=== PATIENT | male | born 1985 | race Caucasian/White ===

== ENCOUNTER 2017-05-30 17:21 | Inpatient (IN) | payer MEDICAID ==
[~2017-05-30] VITALS: Ht 177.8 cm; Wt 65.0 kg
[~2017-05-30 17:21] MED LIST: AMOX1TAB12 PO; APIX5TAB PO; EFAV1TAB PO; SULF1TAB24 PO
[2017-05-30] MEDS ORDERED: SODIUM CHLORIDE FLUSH 10ML SYR IVF ONE ×2 (18:00→21:00)
[2017-05-30] MEDS ORDERED: SODIUM CHLORIDE 0.9% 1,000ML IVBOLUS ONE (18:00)
[2017-05-30] MEDS ORDERED: MORPHINE SULFATE 4 MG/ML, 1ML IVPush PRN (18:00)
[2017-05-30] MEDS ORDERED: ONDANSETRON 2MG/ML, 2ML IVPush ONE (18:00)
[2017-05-30 18:36] LABS: BLOOD UREA NITROGEN 15 mg/dL (7-18)
[2017-05-30 18:47] LABS: ASPARTATE AMINO TRANSFERASE 14 U/L (15-37); HEMATOCRIT 40.4 % (39.2-51.8); HEMOGLOBIN 13.9 g/dL (13.7-18.0); WHITE BLOOD COUNT 11.2 x10^3/uL (3.4-10)
[2017-05-30] MEDS ORDERED: morphine SULFATE 10 MG/ML, 1ML ONE (22:03)
[2017-05-30] MEDS ORDERED: ONDANSETRON 2MG/ML, 2ML ONE (22:04)
[2017-05-30] MEDS ORDERED: OMNIPAQUE 350 MG/ML, 100ML BOTTLE ONE (22:22)
[2017-05-30] MEDS ORDERED: AMPICILLIN/SULBACTAM 3 GM in SODIUM CHLORIDE 0.9% 100 ML IV ONE (22:30)
[2017-05-31] MEDS ORDERED: CLINDAMYCIN 150 MG/ML, 6ML ONE (00:18)
[2017-05-31] MEDS ORDERED: FENTANYL PF 250 MCG/5ML ONE (00:35)
[2017-05-31] MEDS ORDERED: CLINDAMYCIN 150 MG/ML, 6ML IVPB ONE (00:59)
[2017-05-31] MEDS ORDERED: OXYcodone 5 MG/5 ML ORAL.SOL UDC PO PRN (01:00)
[2017-05-31] MEDS ORDERED: LABETALOL 5MG/ML, 20ML IV PRN (01:00)
[2017-05-31] MEDS ORDERED: hydrALAzine 20 MG/ML, 1ML IV PRN (01:00)
[2017-05-31] MEDS ORDERED: ONDANSETRON 2MG/ML, 2ML IVPush PRN ×2 (01:00→01:30)
[2017-05-31] MEDS ORDERED: ACETAMINOPHEN 650 MG/20.3 ML UDC ONE (01:26)
[2017-05-31] MEDS ORDERED: FENTANYL PF 100 MCG/2ML ONE (01:26)
[2017-05-31] MEDS ORDERED: OXYcodone 5 MG/5 ML ORAL.SOL UDC ONE (01:27)
[2017-05-31] MEDS: FENTANYL PF 100 MCG/2ML IV PRN ×2 (01:28→01:37)
[2017-05-31] MEDS ORDERED: ACETAMINOPHEN 325 MG TABLET PO PRN (01:30)
[2017-05-31] MEDS ORDERED: LACTATED RINGERS 1,000 ML IV SCH (01:30)
[2017-05-31] MEDS ORDERED: VANCOMYCIN PER PHARMACY MC PRN (01:30)
[2017-05-31] MEDS ORDERED: HYDROmorphone 1 MG/ML, 1ML ONE (01:44)
[2017-05-31] MEDS: HYDROmorphone 1 MG/ML, 1ML IV PRN ×2 (01:46→01:51)
[2017-05-31 02:30] VITALS: BP 116/77
[2017-05-31] MEDS ORDERED: PHARMACOKINETIC MONITORING MC PRN (02:30)
[2017-05-31] MEDS ORDERED: PHARMACOKINETIC CONSULTATION MC ONE (02:30)
[2017-05-31] MEDS: AMPICILLIN/SULBACTAM 3 GM in SODIUM CHLORIDE 0.9% 100 ML IV SCH ×4 (02:56→21:01)
[2017-05-31] MEDS: OXYcodone/APAP 10/325MG TABLET PO PRN ×2 (03:19→15:36)
[2017-05-31 04:17] LABS: HEMATOCRIT 35.6 % (39.2-51.8); HEMOGLOBIN 12.1 g/dL (13.7-18.0); WHITE BLOOD COUNT 11.4 x10^3/uL (3.4-10)
[2017-05-31] MEDS: VANCOMYCIN 1,300 MG in SODIUM CHLORIDE 0.9% 250 ML IV SCH ×2 (04:46→16:48)
[2017-05-31 09:11] VITALS: BP 111/68
[2017-05-31] MEDS: LACTULOSE 10 GM/15 ML UDC PO SCH ×2 (09:16→21:01)
[2017-05-31] MEDS: EFAVIRENZ/EMTRICITAB/TENOFOVIR 600MG-200MG-300MG TABLET PO SCH (09:16)
[2017-05-31] MEDS: SULFAMETH./TRIMETHOPRIM DS 800MG/160MG TABLET PO SCH ×2 (09:16→21:00)
[2017-05-31] MEDS: LACTATED RINGERS 1,000 ML IV SCH ×2 (12:06→12:10)
[2017-05-31 12:18] LABS: DAU SCREEN DISCLAIMER
[2017-05-31] MEDS ORDERED: PROPOFOL 10 MG/ML, 20ML ONE (12:37)
[2017-05-31] MEDS ORDERED: ONDANSETRON 2MG/ML, 2ML ONE (12:37)
[2017-05-31] MEDS ORDERED: DEXAMETHASONE 4 MG/ML, 1ML ONE (12:37)
[2017-05-31 14:22] VITALS: BP 109/75
[2017-05-31] MEDS ORDERED: morphine SULFATE 10 MG/ML, 1ML ONE (16:54)
[2017-05-31] MEDS: MORPHINE SULFATE 4 MG/ML, 1ML IV PRN (16:57)
[2017-05-31 20:23] VITALS: BP 109/82
[2017-05-31] MEDS: OXYcodone IR 5MG TABLET PO PRN (21:59)
[2017-06-01] MEDS ORDERED: morphine SULFATE 10 MG/ML, 1ML ONE (00:49)
[2017-06-01] MEDS: MORPHINE SULFATE 4 MG/ML, 1ML IV PRN (01:02)
[2017-06-01] MEDS: LACTATED RINGERS 1,000 ML IV SCH ×2 (01:07→14:30)
[2017-06-01] MEDS: HYDROmorphone 2 MG/ML, 1ML IVPush PRN ×6 (02:04→22:20)
[2017-06-01 02:09] VITALS: BP 109/64
[2017-06-01] MEDS: AMPICILLIN/SULBACTAM 3 GM in SODIUM CHLORIDE 0.9% 100 ML IV SCH ×4 (02:23→22:06)
[2017-06-01] MEDS: VANCOMYCIN 1,300 MG in SODIUM CHLORIDE 0.9% 250 ML IV SCH ×2 (05:07→16:49)
[2017-06-01 07:18] VITALS: BP 108/71
[2017-06-01] MEDS: LACTULOSE 10 GM/15 ML UDC PO SCH ×2 (08:48→22:05)
[2017-06-01] MEDS: SULFAMETH./TRIMETHOPRIM DS 800MG/160MG TABLET PO SCH ×2 (08:48→22:05)
[2017-06-01] MEDS: OXYcodone IR 5MG TABLET PO PRN (08:48)
[2017-06-01] MEDS: EFAVIRENZ/EMTRICITAB/TENOFOVIR 600MG-200MG-300MG TABLET PO SCH (08:48)
[2017-06-01 14:11] VITALS: BP 109/67
[2017-06-01 19:10] VITALS: BP 117/69
[2017-06-01 23:06] LABS: ABSOLUTE CD 4 HELPER 97 /uL (359-1519); HEMOGLOBIN 11.9 g/dL (12.6-17.7); IMMATURE GRANULOCYTES 0 % (Not Estab.); MCH 29.1 pg (26.6-33.0); MCHC 33.1 g/dL (31.5-35.7); MCV 88 fL (79-97); MONOCYTES 3 % (Not Estab.); NEUTROPHILS 87 % (Not Estab.); NEUTROPHILS (ABSOLUTE) 9.5 x10E3/uL (1.4-7.0); PLATELETS 217 x10E3/uL (150-379); RBC 4.09 x10E6/uL (4.14-5.80); RDW 14.9 % (12.3-15.4); WBC 10.9 x10E3/uL (3.4-10.8)
[2017-06-02] MEDS: HYDROmorphone 2 MG/ML, 1ML IVPush PRN ×6 (01:07→20:30)
[2017-06-02] MEDS: LACTATED RINGERS 1,000 ML IV SCH ×2 (01:08→13:57)
[2017-06-02 01:10] VITALS: BP 120/81
[2017-06-02] MEDS: AMPICILLIN/SULBACTAM 3 GM in SODIUM CHLORIDE 0.9% 100 ML IV SCH ×2 (02:49→09:37)
[2017-06-02] MEDS: VANCOMYCIN 1,300 MG in SODIUM CHLORIDE 0.9% 250 ML IV SCH (04:57)
[2017-06-02 07:16] VITALS: BP 117/75
[2017-06-02] MEDS: LACTULOSE 10 GM/15 ML UDC PO SCH ×2 (09:37→20:34)
[2017-06-02] MEDS: SULFAMETH./TRIMETHOPRIM DS 800MG/160MG TABLET PO SCH ×2 (09:37→20:34)
[2017-06-02] MEDS: EFAVIRENZ/EMTRICITAB/TENOFOVIR 600MG-200MG-300MG TABLET PO SCH (09:37)
[2017-06-02 14:19] VITALS: BP 119/70
[2017-06-02] MEDS: CEFAZOLIN PMX 2GM/50ML 50 ML IVPB SCH (16:45)
[2017-06-02 19:07] VITALS: BP 108/61
[2017-06-02] MEDS: ENOXAPARIN 60 MG/0.6 ML SQ SCH (20:36)
[2017-06-03] MEDS: LACTATED RINGERS 1,000 ML IV SCH ×3 (00:19→16:31)
[2017-06-03] MEDS: CEFAZOLIN PMX 2GM/50ML 50 ML IVPB SCH ×3 (00:19→16:31)
[2017-06-03] MEDS: HYDROmorphone 2 MG/ML, 1ML IVPush PRN ×2 (00:19→03:48)
[2017-06-03 00:35] VITALS: BP 113/65
[2017-06-03 06:49] VITALS: BP 111/72
[2017-06-03] MEDS: ENOXAPARIN 60 MG/0.6 ML SQ SCH ×2 (08:35→21:08)
[2017-06-03] MEDS: EFAVIRENZ/EMTRICITAB/TENOFOVIR 600MG-200MG-300MG TABLET PO SCH (08:38)
[2017-06-03] MEDS: HYDROmorphone 2MG TABLET PO PRN ×5 (08:38→23:34)
[2017-06-03] MEDS: SULFAMETH./TRIMETHOPRIM DS 800MG/160MG TABLET PO SCH ×2 (08:39→21:08)
[2017-06-03] MEDS: LACTULOSE 10 GM/15 ML UDC PO SCH ×2 (08:40→21:08)
[2017-06-03 12:16] VITALS: BP 120/75
[2017-06-03 20:10] VITALS: BP 107/63
[2017-06-04] MEDS: CEFAZOLIN PMX 2GM/50ML 50 ML IVPB SCH ×2 (00:16→09:40)
[2017-06-04] MEDS: LACTATED RINGERS 1,000 ML IV SCH ×2 (00:54→11:35)
[2017-06-04 02:08] VITALS: BP 119/77
[2017-06-04] MEDS: HYDROmorphone 2MG TABLET PO PRN ×3 (02:56→12:47)
[2017-06-04 05:07] LABS: HEMATOCRIT 39.9 % (39.2-51.8); HEMOGLOBIN 13.4 g/dL (13.7-18.0); WHITE BLOOD COUNT 8.1 x10^3/uL (3.4-10)
[2017-06-04 05:11] LABS: BLOOD UREA NITROGEN 18 mg/dL (7-18)
[2017-06-04 05:32] LABS: ASPARTATE AMINO TRANSFERASE 11 U/L (15-37)
[2017-06-04 07:04] VITALS: BP 103/66
[2017-06-04] MEDS: LACTULOSE 10 GM/15 ML UDC PO SCH (08:05)
[2017-06-04] MEDS: SULFAMETH./TRIMETHOPRIM DS 800MG/160MG TABLET PO SCH (08:05)
[2017-06-04] MEDS: EFAVIRENZ/EMTRICITAB/TENOFOVIR 600MG-200MG-300MG TABLET PO SCH (08:05)
[2017-06-04] MEDS: ENOXAPARIN 60 MG/0.6 ML SQ SCH (08:08)
[2017-06-04] MEDS ORDERED: TRAM50TA2 PO (11:35)
[2017-06-04] MEDS ORDERED: AMOXICILLIN/CLAV 500-125MG TABLET PO SCH (12:00)
[2017-06-04] MEDS ORDERED: APIXABAN 5 MG TABLET PO SCH (12:00)
[2017-06-04 13:24] VITALS: BP 122/80
== END 2017-06-04 13:30 | disposition left against medical advice (07) | DRG 579 ==
LOC: ED 23:20 → EDIP 23:25 → OR 23:58 → 4NOR 05-31 02:07
PROVIDERS: ADMIT Hospitalist; ATTEND Hospitalist
PROC: 0K920ZZ Drainage of Right Neck Muscle, Open Approach (ICD-10-PCS; principal; 2017-05-31 00:30)
DX: L02.11 Cutaneous abscess of neck (principal); B20 Human immunodeficiency virus [HIV] disease; B19.20 Unspecified viral hepatitis C without hepatic coma; Z53.21 Procedure and treatment not carried out due to patient leaving prior to being seen by health care provider; W10.9XXA Fall (on) (from) unspecified stairs and steps, initial encounter; F17.200 Nicotine dependence, unspecified, uncomplicated; S01.01XA Laceration without foreign body of scalp, initial encounter; Z82.0 Family history of epilepsy and other diseases of the nervous system; Z86.718 Personal history of other venous thrombosis and embolism; Y93.89 Activity, other specified; Y92.89 Other specified places as the place of occurrence of the external cause; Y99.8 Other external cause status
CPT/HCPCS: 36415; 70491; 80053; 80202; 80307; 83605; 84145; 85025; 86361; 87015; 87040; 87070; 87075; 87077; 87102; 87116; 87205; 87206; 93306; 93970; 96365; 96375; J0295; J0690; J1100; J1170; J1650; J2405; J2704; J3010; J3370; Q9967; G0479; J7030; J7050; J7120

== ENCOUNTER 2017-06-23 21:36 | Emergency (ER) | payer MEDICAID ==
[~2017-06-23] VITALS: Ht 177.8 cm; Wt 70.0 kg
[~2017-06-23 21:36] MED LIST changes: +TRAM50TA2 PO
[2017-06-23 21:45] VITALS: BP 114/75
[2017-06-23] MEDS ORDERED: CLINDAMYCIN 300 MG CAPSULE ONE (22:29)
[2017-06-23] MEDS ORDERED: CLINDAMYCIN 150 MG/ML, 6ML IM ONE (22:30)
[2017-06-23] MEDS ORDERED: CLINDAMYCIN 300 MG CAPSULE PO ONE (23:00)
== END 2017-06-23 23:00 | disposition home or self-care (01) ==
LOC: ED 22:28
DX: K04.7 Periapical abscess without sinus (principal)
CPT/HCPCS: 99283

== ENCOUNTER 2017-08-19 16:53 | Emergency (ER) | payer MEDICAID ==
[~2017-08-19] VITALS: Ht 177.8 cm; Wt 64.0 kg
[2017-08-19 16:54] VITALS: BP 115/76
[2017-08-19] MEDS ORDERED: SODIUM CHLORIDE FLUSH 10ML SYR IVF ONE (17:30)
[2017-08-19 17:48] LABS: BASOPHILS # (AUTO) 0.04 x10^3/uL (0-0.1); BASOPHILS % (AUTO) 0 % (0-1); EOSINOPHILS # (AUTO) 0.11 x10^3/uL (0-0.4); EOSINOPHILS % (AUTO) 1 % (1-7); LYMPHOCYTES # (AUTO) 2.07 x10^3/uL (1-3.4); LYMPHOCYTES % (AUTO) 15 % (22-44); MD NO; MEAN CORPUSCULAR HEMOGLOBIN 27.9 pg (27.5-34.5); MEAN CORPUSCULAR HGB CONC 32.5 g/dL (33.2-36.2); MEAN PLATELET VOLUME 8.6 fL (7.4-10.4); MONOCYTES # (AUTO) 0.91 x10^3/uL (0.2-0.8); MONOCYTES % (AUTO) 7 % (2-9); NEUTROPHILS # (AUTO) 10.35 x10^3/uL (1.8-6.8); NEUTROPHILS % (AUTO) 77 % (42-75); PLATELET COUNT 261 x10^3/uL (130-400); RED BLOOD COUNT 4.68 x10^6/uL (4.38-5.82); RED CELL DISTRIBUTION WIDTH 18.5 % (9.4-14.8)
[2017-08-19] MEDS ORDERED: CEFAZOLIN 1,000 MG ONE (17:53)
[2017-08-19 17:56] LABS: ALBUMIN 3.2 g/dL (3.4-5.0); ANION GAP 8 mmol/L (5-15); CALCIUM 9.1 mg/dL (8.5-10.1); CHLORIDE 106 mmol/L (98-107); CREATININE 0.79 mg/dL (0.7-1.3)
[2017-08-19] MEDS ORDERED: CEFAZOLIN 1,000 MG IM ONE (18:00)
== END 2017-08-19 19:01 | disposition home or self-care (01) ==
LOC: ED 18:18
DX: L03.115 Cellulitis of right lower limb (principal); L02.415 Cutaneous abscess of right lower limb
CPT/HCPCS: 10060; 36415; 80048; 82040; 85025; 96372; 99284; J0690

== ENCOUNTER 2018-02-22 15:28 | Emergency (ER) | payer MEDICAID ==
[~2018-02-22] VITALS: Ht 177.8 cm; Wt 73.0 kg
[2018-02-22 15:44] VITALS: BP 119/76
[2018-02-22] MEDS ORDERED: LIDOCAINE-MPF 1%, 5ML INFIL ONE (16:00)
[2018-02-22] MEDS ORDERED: BENZOCAINE 20% SPRAY 0.5ML TP ONE (16:00)
== END 2018-02-22 16:39 | disposition home or self-care (01) ==
LOC: ED 16:33
DX: K08.89 Other specified disorders of teeth and supporting structures (principal); Z86.718 Personal history of other venous thrombosis and embolism; F17.200 Nicotine dependence, unspecified, uncomplicated; Z21 Asymptomatic human immunodeficiency virus [HIV] infection status
CPT/HCPCS: 41800; 99283

== ENCOUNTER 2018-03-28 03:26 | Inpatient (IN) | payer MEDICAID ==
[~2018-03-28] VITALS: Ht 177.8 cm; Wt 73.1 kg
[2018-03-28] MEDS ORDERED: SODIUM CHLORIDE FLUSH 10ML SYR IVF ONE (04:00)
[2018-03-28 04:10] LABS: MEAN CORPUSCULAR HEMOGLOBIN 29.6 pg (27.5-34.5); MEAN CORPUSCULAR HGB CONC 33.3 g/dL (33.2-36.2); MEAN CORPUSCULAR VOLUME 88.8 fL (81-97); MEAN PLATELET VOLUME 8.1 fL (7.4-10.4); PLATELET COUNT 383 x10^3/uL (130-400); RED BLOOD COUNT 4.46 x10^6/uL (4.38-5.82); RED CELL DISTRIBUTION WIDTH 12.8 % (9.4-14.8)
[2018-03-28 04:21] LABS: CHLORIDE 98 mmol/L (98-107)
[2018-03-28 04:22] LABS: ALBUMIN 3.4 g/dL (3.4-5.0); ANION GAP 9 mmol/L (5-15); CALCIUM 9.1 mg/dL (8.5-10.1)
[2018-03-28] MEDS ORDERED: ONDANSETRON ODT 4 MG PO ONE (04:30)
[2018-03-28] MEDS ORDERED: MORPHINE SULFATE 4 MG/ML, 1ML IVPush PRN ×2 (04:30→18:30)
[2018-03-28] MEDS ORDERED: ONDANSETRON ODT 4 MG ONE (04:36)
[2018-03-28] MEDS ORDERED: MORPHINE SULFATE 4 MG/ML, 1ML ONE (04:36)
[2018-03-28 04:51] LABS: BASOPHILS # (AUTO) 0.02 x10^3/uL (0-0.1); BASOPHILS % (AUTO) 0 % (0-1); EOSINOPHILS # (AUTO) 0.13 x10^3/uL (0-0.4); EOSINOPHILS % (AUTO) 1 % (1-7); LYMPHOCYTES # (AUTO) 1.94 x10^3/uL (1-3.4); LYMPHOCYTES % (AUTO) 12 % (22-44); MD SCAN; MONOCYTES # (AUTO) 0.88 x10^3/uL (0.2-0.8); MONOCYTES % (AUTO) 5 % (2-9); NEUTROPHILS % (AUTO) 82 % (42-75)
[2018-03-28] MEDS ORDERED: AMPICILLIN/SULBACTAM 3 GM in SODIUM CHLORIDE 0.9% 100 ML IVPB ONE (05:00)
[2018-03-28] MEDS ORDERED: PHARMACOKINETIC CONSULTATION MC ONE ×2 (05:00→10:00)
[2018-03-28] MEDS ORDERED: PHARMACOKINETIC MONITORING MC PRN ×2 (05:00→10:00)
[2018-03-28] MEDS ORDERED: VANCOMYCIN PER PHARMACY MC ONE (05:00)
[2018-03-28] MEDS ORDERED: VANCOMYCIN 1,300 MG in SODIUM CHLORIDE 0.9% 250 ML IV ONE (05:30)
[2018-03-28] MEDS ORDERED: VANCOMYCIN 1,400 MG in SODIUM CHLORIDE 0.9% 250 ML IV ONE (05:30)
[2018-03-28] MEDS ORDERED: OMNIPAQUE 350 MG/ML, 100ML BOTTLE ONE (05:50)
[2018-03-28] MEDS ORDERED: METOCLOPRAMIDE 5 MG/ML, 2ML ONE (05:55)
[2018-03-28] MEDS ORDERED: ACETAMINOPHEN 325 MG TABLET PO PRN (09:30)
[2018-03-28] MEDS ORDERED: VANCOMYCIN PER PHARMACY MC PRN (09:30)
[2018-03-28] MEDS ORDERED: VANCOMYCIN 1,200 MG in SODIUM CHLORIDE 0.9% 250 ML IV SCH (10:00)
[2018-03-28] MEDS: SODIUM CHLORIDE 0.9% 1,000 ML IV SCH (10:57)
[2018-03-28] MEDS: PIPERACILLIN/TAZO/PMX 3.375GM 50 ML IV SCH ×2 (10:57→21:20)
[2018-03-28] MEDS: NICOTINE 7 MG/24 HR PATCH.TD24 TD SCH (10:58)
[2018-03-28] MEDS: EFAVIRENZ/EMTRICITAB/TENOFOVIR 600MG-200MG-300MG TABLET PO SCH (10:58)
[2018-03-28 15:22] VITALS: BP 101/65
[2018-03-28] MEDS ORDERED: LIDOCAINE 1%-EPI 1:100K, 30ML ONE (15:46)
[2018-03-28] MEDS ORDERED: FENTANYL PF 100 MCG/2ML ONE ×3 (17:45→18:56)
[2018-03-28] MEDS ORDERED: MIDAZOLAM 1 MG/ML, 2ML ONE (17:45)
[2018-03-28] MEDS ORDERED: CLINDAMYCIN 150 MG/ML, 6ML ONE (18:11)
[2018-03-28] MEDS ORDERED: ONDANSETRON 2MG/ML, 2ML ONE (18:18)
[2018-03-28] MEDS ORDERED: KETOROLAC 30 MG/1 ML ONE (18:18)
[2018-03-28] MEDS ORDERED: SUCCINYLCHOLINE 20 MG/ML, 10ML ONE (18:18)
[2018-03-28] MEDS ORDERED: ROCURONIUM 10MG/ML,5ML ONE (18:18)
[2018-03-28] MEDS ORDERED: PROPOFOL 10 MG/ML, 20ML ONE (18:18)
[2018-03-28] MEDS ORDERED: MIDAZOLAM 1 MG/ML, 2ML IV PRN (18:30)
[2018-03-28] MEDS ORDERED: LABETALOL 5MG/ML, 20ML IV PRN (18:30)
[2018-03-28] MEDS ORDERED: ONDANSETRON ODT 8 MG PO PRN (18:30)
[2018-03-28] MEDS ORDERED: PROMETHAZINE 25 MG/ML, 1ML IV PRN (18:30)
[2018-03-28] MEDS ORDERED: ALBUTEROL SULFATE 2.5 MG/3 ML NPPB PRN (18:30)
[2018-03-28] MEDS ORDERED: OXYcodone 5 MG/5 ML ORAL.SOL UDC PO PRN (18:30)
[2018-03-28] MEDS ORDERED: EPHEDRINE 50 MG/ML, 1ML IVPush PRN (18:30)
[2018-03-28] MEDS ORDERED: PROMETHAZINE 12.5 MG SUPP PR PRN (18:30)
[2018-03-28] MEDS ORDERED: ONDANSETRON 2MG/ML, 2ML IV PRN (18:30)
[2018-03-28] MEDS ORDERED: hydrALAzine 20 MG/ML, 1ML IV PRN (18:30)
[2018-03-28] MEDS ORDERED: MEPERIDINE/PF 25MG/0.5ML IVPush PRN (18:30)
[2018-03-28] MEDS ORDERED: LORazepam 2 MG/ML, 1ML IVPush PRN (18:30)
[2018-03-28] MEDS ORDERED: HYDROmorphone 2 MG/ML, 1ML ONE (18:57)
[2018-03-28] MEDS ORDERED: OXYcodone 5 MG/5 ML ORAL.SOL UDC ONE (18:57)
[2018-03-28] MEDS: FENTANYL PF 100 MCG/2ML IV PRN ×2 (19:02→19:07)
[2018-03-28] MEDS: HYDROmorphone 1 MG/ML, 1ML IV PRN ×4 (19:02→19:50)
[2018-03-28 20:23] VITALS: BP 102/67
[2018-03-28] MEDS ORDERED: LACTATED RINGERS 1,000 ML IV SCH (21:00)
[2018-03-28] MEDS: morphine SULFATE 10 MG/ML, 1ML IVPush PRN (21:37)
[2018-03-28] MEDS: VANCOMYCIN 1,300 MG in SODIUM CHLORIDE 0.9% 250 ML IV SCH (22:12)
[2018-03-29] MEDS: morphine SULFATE 10 MG/ML, 1ML IVPush PRN ×3 (00:55→07:44)
[2018-03-29 01:04] VITALS: BP 100/61
[2018-03-29] MEDS: PIPERACILLIN/TAZO/PMX 3.375GM 50 ML IV SCH ×4 (04:05→22:43)
[2018-03-29 05:43] LABS: BASOPHILS # (AUTO) 0.01 x10^3/uL (0-0.1); BASOPHILS % (AUTO) 0 % (0-1); EOSINOPHILS # (AUTO) 0.17 x10^3/uL (0-0.4); EOSINOPHILS % (AUTO) 1 % (1-7); LYMPHOCYTES # (AUTO) 1.16 x10^3/uL (1-3.4); LYMPHOCYTES % (AUTO) 9 % (22-44); MD NO; MEAN CORPUSCULAR HEMOGLOBIN 30.5 pg (27.5-34.5); MEAN CORPUSCULAR HGB CONC 34.4 g/dL (33.2-36.2); MEAN CORPUSCULAR VOLUME 88.5 fL (81-97); MEAN PLATELET VOLUME 7.9 fL (7.4-10.4); MONOCYTES # (AUTO) 0.49 x10^3/uL (0.2-0.8); MONOCYTES % (AUTO) 4 % (2-9); NEUTROPHILS % (AUTO) 85 % (42-75); PLATELET COUNT 300 x10^3/uL (130-400); RED BLOOD COUNT 3.78 x10^6/uL (4.38-5.82); RED CELL DISTRIBUTION WIDTH 12.9 % (9.4-14.8)
[2018-03-29 05:53] LABS: CALCIUM 7.9 mg/dL (8.5-10.1); CHLORIDE 105 mmol/L (98-107)
[2018-03-29 05:58] LABS: ALANINE AMINOTRANSFERASE 12 U/L (12-78); ALBUMIN 2.5 g/dL (3.4-5.0); ALKALINE PHOSPHATASE 21 U/L (45-117); ANION GAP 8 mmol/L (5-15); BILIRUBIN,TOTAL 0.3 mg/dL (0.2-1.0); CREATININE 0.85 mg/dL (0.7-1.3); TOTAL PROTEIN 6.9 g/dL (6.4-8.2)
[2018-03-29] MEDS: SODIUM CHLORIDE 0.9% 1,000 ML IV SCH ×2 (06:28→19:28)
[2018-03-29 08:05] VITALS: BP 111/70
[2018-03-29 09:38] LABS: AMPHETAMINE SCREEN, URINE Positive (Negative); BARBITURATE SCREEN, URINE Negative (Negative); BENZODIAZEPINE SCREEN, URINE Positive (Negative); CANNABINOID SCREEN, URINE Negative (Negative); COCAINE SCREEN, URINE Negative (Negative); METHADONE SCREEN, URINE Negative (Negative); OPIATE SCREEN, URINE Positive (Negative)
[2018-03-29] MEDS: NICOTINE 7 MG/24 HR PATCH.TD24 TD SCH (10:24)
[2018-03-29] MEDS: EFAVIRENZ/EMTRICITAB/TENOFOVIR 600MG-200MG-300MG TABLET PO SCH (10:24)
[2018-03-29] MEDS: VANCOMYCIN 1,300 MG in SODIUM CHLORIDE 0.9% 250 ML IV SCH ×2 (11:11→21:08)
[2018-03-29] MEDS: HEPARIN 5,000 UNITS/ML, 1ML SQ SCH ×2 (11:12→20:15)
[2018-03-29] MEDS: HYDROmorphone 2 MG/ML, 1ML IV PRN ×3 (11:12→20:15)
[2018-03-29 12:55] VITALS: BP 116/72
[2018-03-29 18:47] VITALS: BP 109/66
[2018-03-29] MEDS ORDERED: TEMAZEPAM 15 MG CAPSULE PO PRN (20:30)
[2018-03-30] MEDS: HYDROmorphone 2 MG/ML, 1ML IV PRN ×6 (00:35→21:25)
[2018-03-30 02:55] VITALS: BP 114/67
[2018-03-30] MEDS: HEPARIN 5,000 UNITS/ML, 1ML SQ SCH ×3 (04:30→21:23)
[2018-03-30] MEDS: PIPERACILLIN/TAZO/PMX 3.375GM 50 ML IV SCH ×4 (05:21→23:48)
[2018-03-30 07:55] VITALS: BP 109/67
[2018-03-30] MEDS: NICOTINE 7 MG/24 HR PATCH.TD24 TD SCH (09:59)
[2018-03-30] MEDS: VANCOMYCIN 1,300 MG in SODIUM CHLORIDE 0.9% 250 ML IV SCH ×2 (10:00→21:29)
[2018-03-30] MEDS: SODIUM CHLORIDE 0.9% 1,000 ML IV SCH (10:00)
[2018-03-30] MEDS: EFAVIRENZ/EMTRICITAB/TENOFOVIR 600MG-200MG-300MG TABLET PO SCH (10:00)
[2018-03-30 20:00] VITALS: BP 115/72
[2018-03-31] MEDS: HYDROmorphone 2 MG/ML, 1ML IV PRN ×6 (01:23→23:25)
[2018-03-31 01:26] VITALS: BP 118/78
[2018-03-31] MEDS: HEPARIN 5,000 UNITS/ML, 1ML SQ SCH ×3 (04:30→21:26)
[2018-03-31] MEDS: PIPERACILLIN/TAZO/PMX 3.375GM 50 ML IV SCH ×3 (05:29→18:40)
[2018-03-31 08:00] VITALS: BP 98/64
[2018-03-31] MEDS: VANCOMYCIN 1,300 MG in SODIUM CHLORIDE 0.9% 250 ML IV SCH (09:41)
[2018-03-31] MEDS: NICOTINE 7 MG/24 HR PATCH.TD24 TD SCH (09:41)
[2018-03-31] MEDS: EFAVIRENZ/EMTRICITAB/TENOFOVIR 600MG-200MG-300MG TABLET PO SCH (09:41)
[2018-03-31 09:55] LABS: ANION GAP 7 mmol/L (5-15); CALCIUM 8.9 mg/dL (8.5-10.1); CHLORIDE 109 mmol/L (98-107); CREATININE 0.79 mg/dL (0.7-1.3)
[2018-03-31 10:04] LABS: BASOPHILS # (AUTO) 0.07 x10^3/uL (0-0.1); BASOPHILS % (AUTO) 1 % (0-1); EOSINOPHILS # (AUTO) 0.24 x10^3/uL (0-0.4); EOSINOPHILS % (AUTO) 3 % (1-7); LYMPHOCYTES # (AUTO) 2.06 x10^3/uL (1-3.4); LYMPHOCYTES % (AUTO) 24 % (22-44); MD NO; MEAN CORPUSCULAR HEMOGLOBIN 29.7 pg (27.5-34.5); MEAN CORPUSCULAR HGB CONC 33.6 g/dL (33.2-36.2); MEAN CORPUSCULAR VOLUME 88.4 fL (81-97); MEAN PLATELET VOLUME 7.4 fL (7.4-10.4); MONOCYTES # (AUTO) 0.52 x10^3/uL (0.2-0.8); MONOCYTES % (AUTO) 6 % (2-9); NEUTROPHILS % (AUTO) 67 % (42-75); PLATELET COUNT 441 x10^3/uL (130-400); RED BLOOD COUNT 4.28 x10^6/uL (4.38-5.82); RED CELL DISTRIBUTION WIDTH 13.5 % (9.4-14.8)
[2018-03-31 15:53] VITALS: BP 113/73
[2018-03-31] MEDS ORDERED: VANCOMYCIN 1,400 MG in SODIUM CHLORIDE 0.9% 250 ML IV SCH (20:00)
[2018-03-31 21:56] VITALS: BP 124/79
[2018-04-01] MEDS: PIPERACILLIN/TAZO/PMX 3.375GM 50 ML IV SCH ×3 (00:11→13:49)
[2018-04-01 00:28] VITALS: BP 112/73
[2018-04-01 05:24] LABS: BASOPHILS # (AUTO) 0.03 x10^3/uL (0-0.1); BASOPHILS % (AUTO) 1 % (0-1); EOSINOPHILS # (AUTO) 0.24 x10^3/uL (0-0.4); EOSINOPHILS % (AUTO) 4 % (1-7); LYMPHOCYTES # (AUTO) 1.84 x10^3/uL (1-3.4); LYMPHOCYTES % (AUTO) 27 % (22-44); MD NO; MEAN CORPUSCULAR HEMOGLOBIN 29.8 pg (27.5-34.5); MEAN CORPUSCULAR HGB CONC 33.5 g/dL (33.2-36.2); MEAN CORPUSCULAR VOLUME 88.9 fL (81-97); MEAN PLATELET VOLUME 7.3 fL (7.4-10.4); MONOCYTES % (AUTO) 7 % (2-9); NEUTROPHILS # (AUTO) 4.23 x10^3/uL (1.8-6.8); NEUTROPHILS % (AUTO) 62 % (42-75); PLATELET COUNT 421 x10^3/uL (130-400); RED BLOOD COUNT 4.05 x10^6/uL (4.38-5.82); RED CELL DISTRIBUTION WIDTH 13.4 % (9.4-14.8)
[2018-04-01 05:29] LABS: ANION GAP 9 mmol/L (5-15); CALCIUM 8.6 mg/dL (8.5-10.1); CHLORIDE 111 mmol/L (98-107)
[2018-04-01 05:31] LABS: CREATININE 0.74 mg/dL (0.7-1.3)
[2018-04-01] MEDS: HEPARIN 5,000 UNITS/ML, 1ML SQ SCH ×2 (05:49→13:30)
[2018-04-01] MEDS: HYDROmorphone 2 MG/ML, 1ML IV PRN (05:56)
[2018-04-01 07:52] VITALS: BP 104/67
[2018-04-01] MEDS: HYDROcodone/APAP 5/325 TABLET PO PRN ×2 (09:42→13:49)
[2018-04-01] MEDS: EFAVIRENZ/EMTRICITAB/TENOFOVIR 600MG-200MG-300MG TABLET PO SCH (09:42)
[2018-04-01] MEDS: NICOTINE 7 MG/24 HR PATCH.TD24 TD SCH (09:42)
[2018-04-01 13:04] VITALS: BP 111/72
== END 2018-04-01 16:41 | disposition left against medical advice (07) | DRG 854 ==
LOC: ED 06:02 → EDIP 06:42 → 3NE 08:20
PROVIDERS: ADMIT Internal Medicine; ATTEND Internal Medicine
PROC: 0K920ZZ Drainage of Right Neck Muscle, Open Approach (ICD-10-PCS; principal; 2018-03-28 16:00)
DX: A41.9 Sepsis, unspecified organism (principal); L02.11 Cutaneous abscess of neck; E87.1 Hypo-osmolality and hyponatremia; M60.811 Other myositis, right shoulder; F17.210 Nicotine dependence, cigarettes, uncomplicated; Z21 Asymptomatic human immunodeficiency virus [HIV] infection status; D64.9 Anemia, unspecified; B95.4 Other streptococcus as the cause of diseases classified elsewhere; F19.90 Other psychoactive substance use, unspecified, uncomplicated; Z53.21 Procedure and treatment not carried out due to patient leaving prior to being seen by health care provider; Z91.14 Patient's other noncompliance with medication regimen; Z86.718 Personal history of other venous thrombosis and embolism; Z82.0 Family history of epilepsy and other diseases of the nervous system; Z80.9 Family history of malignant neoplasm, unspecified; Z71.6 Tobacco abuse counseling
CPT/HCPCS: 36415; 84145; 99285; S0077; 70491; 80048; 80053; 80202; 80307; 82040; 83605; 85025; 86361; 87040; 87070; 87075; 87205; 96365; 96375; G0378; J0295; J1170; J1644; J1885; J2250; J2405; J2543; J2704; J3010; J3370; J3490; Q9967; J0330; J2270; J7030; J7050